=== PATIENT | female | born 1950 | race Caucasian/White ===

== ENCOUNTER → 2016-06-21 | Outpatient (CLI) | payer OTHER, MEDICARE | LOC: BMCIMAGING 12:06 | PROVIDERS: ATTEND Physician Assistant Medical | DX: R06.02 Shortness of breath (principal); M41.84 Other forms of scoliosis, thoracic region ==

== ENCOUNTER → 2018-02-23 | Outpatient (CLI) | payer OTHER, MEDICARE | LOC: FIMAGING 10:30 | PROVIDERS: ATTEND Orthopaedic Surgery | DX: M17.0 Bilateral primary osteoarthritis of knee (principal) ==

== ENCOUNTER 2018-03-12 05:48 | Observation (INO) | payer OTHER, MEDICARE ==
--- NOTE | 2018-02-28 14:17 | GHP ---
DATE OF ADMISSION: 03/12/2018 She will be an a.m. admission for surgery at the hospital on 03/12/2018. PROBLEM: Left knee arthritis. HISTORY OF PRESENT ILLNESS: The patient is a 67-year-old woman admitted for a left total knee arthro plasty. She is aware of bilateral knee degenerative arthritis for the past few years. She lives in [place], [place]. She is having daily pain. She has received cortisone injections in the past with temporary benefit. She is currently taking meloxicam which is mildly helpful. She was abimbola carrera scheduled for surgery in [facility]. She has pulmonary hypertension and is on chronic oxygen administration. The surgeon there did not want to do her surgery at an altitude of 9800 feet. She h as a son who lives in [place]. She can function here without supplemental oxygen. PAST MEDICAL HISTORY: Pulmonary hypertension and treatment for hypertension. No history of heart di sease, stents, DVT, hepatitis, MRSA staph infections, sleep apnea or bleeding problems. CURRENT MEDICATIONS: Lisinopril and meloxicam. DRUG ALLERGY: None. METAL ALLERGY: None. LATEX ALLERGY: None. SOCIAL HISTORY: The patient is . She does not smoke cigarettes and occasionally drinks alcoh ol. She is retired. She does not have any other total joint replacements. FAMILY HISTORY: Positive for heart disease and cancer. PHYSICAL EXAMINATION: VITAL SIGNS: Height 5 feet 2 inches. Weight 160 pounds. BMI 29.3. EYES: C onjunctivae and sclerae are clear. Pupils are round and reactive. MOUTH: Good oral hygiene. No lo ose teeth. CHEST: Clear. HEART: Regular rhythm. No murmurs. EXTREMITIES: Pertinent findings li mited to her left knee. Exam of her left knee shows full extension and 120 degrees of flexion. She has a small effusion. Her ligaments are stable. She is mildly tender along the medial joint line of her left knee. IMAGING: Her films show advanced medial compartment degenerative arthritis in both knees. Radiograp hically, her right knee is a little worse than the left. IMPRESSION ON ADMISSION: 1. Bilateral knee degenerative arthritis. She is prepared for a left total knee arthroplasty. 2. Treatment for hypertension. 3. Pulmonary hypertension. PLAN: She will undergo a left total knee arthroplasty. The surgery has been described to her, inclu ding the risks, complications, expectations, and recovery time. She has seen both her hot dimpling machine operator sher nd her office admin at [facility] in [place] and they have cleared her for surgery. Juan baltazar will be staying with her son in [place] for few weeks after surgery. I am going to use Gene roboti c assisted total knee system. The risks, complications and expectations and recovery time have been reviewed with her and with her . I have advised her that a small percentage of people do not get a good result with a total knee replacement. She is aware of medical complications such as pneum onia, stroke and heart attack. All her questions have been answered, and she consents to surgery. Copy requested to: Dr. Boston [place] /[id number]/MODL
[2018-03-12] MEDS ORDERED: TRANEXAMIC ACID 1,000 MG in NS 100 ML IV ONE (06:00)
[2018-03-12] MEDS ORDERED: ROPIVACAINE 0.2% 80 MG, EPINEPHrine 0.2 MG, KETOROLAC TROMETHAMINE 30 MG in SYRINGE 0 ML IU ONE (06:00)
[2018-03-12] MEDS ORDERED: POVIDONE-IODINE 20 ML in SODIUM CL IRRIG SOLUTION 500 ML IRR ONE (06:00)
[2018-03-12] MEDS ORDERED: TRANEXAMIC ACID 3,000 MG in NS (SYRINGE) 50 ML IRR ONE (06:00)
[2018-03-12] MEDS ORDERED: FAMOTIDINE 20 MG TAB PO ONE (06:04)
[2018-03-12] MEDS ORDERED: ceFAZolin 2 GM/DEXTROSE 100 ML IV ONE (06:04)
[2018-03-12] MEDS ORDERED: ONDANSETRON 4 MG/2 ML VIAL IVP ONE (06:04)
[2018-03-12] MEDS ORDERED: ACETAMINOPHEN 325 MG TAB PO ONE (06:04)
[2018-03-12] MEDS ORDERED: DEXAMETHASONE 4 MG/ML VIAL IVP ONE (06:04)
[2018-03-12] MEDS ORDERED: GABAPENTIN 300 MG CAP PO ONE (06:04)
[2018-03-12] MEDS ORDERED: LIDOCAINE 1% 2 ML INJ ID PRN (06:05)
[2018-03-12] MEDS ORDERED: LR 1,000 ML IV ONE (06:05)
[2018-03-12] MEDS ORDERED: ceFAZolin 1 GM/5 ML SYR ONE (06:35)
[2018-03-12] MEDS ORDERED: TRANEXAMIC ACID 3,000 MG/50 ML BAG IRR ONE (06:36)
--- NOTE | 2018-03-12 06:48 | PDANEPAE ---
ANE Past Medical History - Cardiovascular History Hx Hypertension: Yes Hx Arrhythmias: No Hx Chest Pain: No Hx Coronary Artery / Peripheral Vascular Disease: No Hx CHF / Valvular Disease: No Hx Palpitations: No - Pulmonary History Hx COPD: No Hx Asthma/Reactive Airway Disease: No Hx Recent Upper Respiratory Infection: No Hx Oxygen in Use at Home: Yes O2 in Use at Home (L/minute): O2 3L CONT 24 HRS Hx Sleep Apnea: No Sleep Apnea Screening Result - Last Documented: Negative Pulmonary History Comment: PULMONARY HTN - Neurologic History Hx Cerebrovascular Accident: No Hx Seizures: No Hx Dementia: No - Endocrine History Hx Diabetes: No Hypothyroid: No Hyperthyroid: No Obesity: no - Renal History Hx Renal Disorders: No - Liver History Hx Hepatic Disorders: No - Neurological & Psychiatric Hx Hx Neurological and Psychiatric Disorders: No - Cancer History Hx Cancer: No - Congenital Disorder History Hx Congenital Disorders: No - GI History GERD: no Hx Gastrointestinal Disorders: No - Chronic Pain History Chronic Pain: Yes (KNEES CESAR CURRENTLY EXPERIENCING SOME SHOULDER PAIN) - Surgical History Prior Surgeries: D&C 8 YRS AGO ANE Review of Systems Review of Systems: - Exercise capacity Exercise capacity: >=4 METS METS (RN): 4 METS ANE Patient History - Allergies Allergies/Adverse Reactions: No Known Allergies Allergy (Unverified 02/21/18 10:25) - Home Medications Home Medications: Cholecalciferol Vit D3 [Vitamin D3 (*)] 1,000 units PO DAILY 02/21/18 [Last Taken 03/05/18] Herbals/Supplements -Info Only 1 ea PO DAILY 02/21/18 [Last Taken Unknown] Hydrochlorothiazide [HCTZ (*)] 25 mg PO DAILY 02/21/18 [Last Taken 03/11/18] Lisinopril [Zestril 2.5 mg (*)] 2.5 mg PO BID 02/21/18 [Last Taken 03/11/18] Meloxicam 7.5 mg PO BID 02/21/18 [Last Taken 03/11/18] - NPO status NPO Since - Liquids (Date): 03/12/18 NPO Since - Liquids (Time): 02:30 NPO Since - Solids (Date): 03/11/18 NPO Since - Solids (Time): 19:00 - Anes Hx Anes Hx: no prior problems - Smoking Hx Smoking Status: Never smoked Marijuana use: No - Alcohol Use Alcohol Use: Occasionally - Family Anes Hx Family Anes Hx: neg - N/A Family Hx Anesthesia Complications: NEG ANE Labs/Vital Signs - Vital Signs Height: 158.75 cm Weight: 72.575 kg ANE Physical Exam - Airway Neck exam: FROM Mallampati Score: Class 3 Mouth exam: normal dental/mouth exam - Pulmonary Pulmonary: no respiratory distress, no rales or rhonchi, clear to auscultation - Cardiovascular Cardiovascular: regular rate and rhythym, no murmur, rub, or gallop - ASA Status ASA Status: II ANE Anesthesia Plan Anesthesia Plan: MAC, spinal Regional Anesthesia: continuous NB, adductor canal FNB Total IV Anesthesia: No
[2018-03-12] MEDS ORDERED: MIDAZOLAM 2 MG/2 ML VIAL ONE (07:02)
--- NOTE | 2018-03-12 07:02 | PDHPUP ---
History & Physical Update H&P update statement: This history and physical update is based on an assessment of the patient which was completed after admission or registration (within 24 hours), but prior to the surgery/procedure. H&P update: H&P reviewed & patient examined
[2018-03-12] MEDS ORDERED: fentaNYL 100 MCG/2 ML INJ ONE (07:12)
[2018-03-12] MEDS ORDERED: PROPOFOL/EMULSION 500 MG/50 ML BOTTLE IV ONE (07:13)
[2018-03-12] MEDS ORDERED: BUPIVACAINE/DEXTROSE 7.5MG/ML 2 ML SPINAL AMP SP ONE (07:13)
[2018-03-12] MEDS ORDERED: LR 500 ML IV PRN (08:01)
[2018-03-12] MEDS ORDERED: PHENYLEPHRINE HCL 100 MCG/ML SYR IVP PRN (08:01)
[2018-03-12] MEDS ORDERED: ONDANSETRON 4 MG/2 ML VIAL IVP PRN ×2 (08:01→09:41)
[2018-03-12] MEDS ORDERED: NALOXONE HCL 0.4 MG/ML INJ IVP PRN (08:01)
[2018-03-12] MEDS ORDERED: MIDAZOLAM 2 MG/2 ML VIAL IVP ONE (08:01)
[2018-03-12] MEDS ORDERED: PROMETHAZINE HCL 25 MG/ML INJ IVP PRN ×2 (08:01→09:41)
--- NOTE | 2018-03-12 09:36 | POSTOPPROG ---
Post Op Note Date of Operation: 03/12/18 Surgeon: Artie Jay Pathology Assistant: David/Kenzie Anesthesiologist: Dr. Ancelmo Robledo Post-op Diagnosis: Left knee severe degenerative arthritis. Procedure: Left total knee arthroplasty, Gene robot assisted, uncemented. Inf/Abcess present in the surg proc area at time of surgery?: No EBL: 50-100 (Adductor canal block in PACU with indwelling catheter.)
[2018-03-12] MEDS ORDERED: ROPIVACAINE HCL 150 MG/30 ML INJ ONE (09:39)
[2018-03-12] MEDS ORDERED: METOCLOPRAMIDE 10 MG/2 ML VIAL IVP PRN (09:41)
[2018-03-12] MEDS ORDERED: oxyCODONE IR 5 MG TAB PO PRN (09:41)
[2018-03-12] MEDS ORDERED: POLYETHYLENE GLYCOL 3350 17 GM PKT PO PRN (09:41)
[2018-03-12] MEDS ORDERED: traMADol 50 MG TAB PO PRN (09:41)
[2018-03-12] MEDS ORDERED: DIPHENOXYLATE/ATROPINE LOMOTIL 1 TAB PO PRN (09:41)
[2018-03-12] MEDS ORDERED: PROMETHAZINE HCL 25 MG SUPPR PR PRN (09:41)
[2018-03-12] MEDS ORDERED: BISACODYL 10 MG SUPP PR PRN (09:41)
[2018-03-12] MEDS ORDERED: ONDANSETRON DISINTEGRATING 4 MG TAB PO PRN (09:41)
[2018-03-12] MEDS ORDERED: TEMAZEPAM 15 MG CAP PO PRN (09:41)
[2018-03-12] MEDS ORDERED: MAGNESIUM HYDROXIDE 30 ML UDCUP PO PRN (09:41)
[2018-03-12] MEDS ORDERED: CYCLOBENZAPRINE 10 MG TAB PO PRN (09:41)
[2018-03-12] MEDS ORDERED: NS 500 ML IV PRN (09:41)
[2018-03-12] MEDS ORDERED: diphenhydrAMINE 25 MG CAP PO PRN (09:41)
[2018-03-12] MEDS ORDERED: LACTULOSE 20 GM/30 ML UDCUP PO PRN (09:41)
[2018-03-12] MEDS ORDERED: LR 1,000 ML IV SCH (10:00)
--- NOTE | 2018-03-12 11:01 | POSTANESTH ---
Post Anesthetic Evaluation Cardiovascular Status: Normal, Stable Respiratory Status: Normal, Stable Level of Consciousness/Mental Status: Can Participate in Eval Pain Control: Adequate, Prn Tx Ordered Nausea/Vomiting Control: Adequate, Prn Tx Ordered Complications Possibly Related to Anesthesia: None Noted
--- NOTE | 2018-03-12 11:16 | GOP ---
DATE OF OPERATION: 03/12/2018 SURGEON: Artie Jay MD EMD TEACHER: Shree Hernandez and Nemesio Espino. ANESTHESIA: Combination of Marcaine, spinal, IV sedation, and adductor canal block. ANESTHESIOLOGIST: Daniel Robledo DO. PREOPERATIVE DIAGNOSIS: Left knee severe degenerative arthritis with varus deformity. POSTOPERATIVE DIAGNOSIS: Left knee severe degenerative arthritis with varus deformity. PROCEDURE PERFORMED: March 12, 2018, left total knee arthroplasty, Gene robot assisted, cementles s. FINDINGS: DESCRIPTION OF PROCEDURE: The patient was given 2 g of preoperative Ancef within 60 minutes of surge ry. She also received 1000 mg of IV tranexamic acid. She was placed on the operating room table and given spinal anesthesia with Marcaine by Dr. Robledo. She was then placed supine and given IV s edation. She wore a stocking and SCD on the nonoperative leg. Her left lower extremity was prepped with ChloraPrep from the upper thigh tourniquet to the tips of the toes. It was draped free using st erile sheets, stockinette, and Ioban plastic adhesive drapes. The lower leg was wrapped with ezequiel sive Coban. The World Health Organization time-out was performed to verify the correct patient identity and the c orrect surgical side and site. The [place] time-out was also performed. The TekTra[employer] leg holding george ce was sterilely attached to the operating room table and used throughout the procedure to help posit ion the knee. Two, 3 mm partially threaded pins were inserted in a bicortical fashion in the anteromedial cortex of the tibia about 4-5 inches distal to the tibial tubercle. The leg was exsanguinated with a 6-inch c ompressive wrap, and the pneumatic tourniquet was inflated to 250 mmHg. A straight midline incision made centered on the patella. Subcutaneous tissues were sharply divided, and hemostasis was obtained using electrocautery. A medial subcutaneous flap was developed and the capsule and synovium were op ened in a medial parapatellar fashion. Extensive degenerative changes were present in the medial compartment and in the patellofemoral joint . Her medial capsule was lightly elevated off the rim of the medial tibial plateau all the way aroun d to the posteromedial corner. Two, 3 mm partially threaded pins were inserted in a bicortical fashion in the medial aspect of the d istal femur in the supracondylar region. The femoral check point was inserted just anterior and slig htly distal to the 2 pins. The tibial check point was inserted in the anteromedial cortex of the pro ximal tibia about an inch below the joint line. The arrays were attached to the femur and tibia. I confirmed that the arrays were visualized by the computer. The patella was prepared first. The original thickness of the patella was measured. Peripheral oste ophytes removed. I cut a flat surface on the back of the patella. She was sized for a 29 mm asymmet maximo patellar component with the 10 mm thickness. I removed enough bone from the patella such that th e remaining bone plus the thickness of the patellar component recreated the original thickness of the patella. The composite thickness was 23 mm. The bony anatomy of the knee was registered starting with the center rotation of the femur, followed by the medial and lateral malleoli. The femoral and tibial anatomy were registered and checked. I removed osteophytes from the rim of the medial and lateral femoral condyles. I then performed the dynamic joint balancing. As expected, she was tight medially. The preoperative plan called for a si ze 3 femur and a size 3 tibia. I had to make some adjustments in the position of the femoral and tib ial components in order to achieve symmetrical gap balances of 18 mm in extension and flexion. I add ed a couple of degrees of varus to the femur, 2 degrees of external rotation to the femur, 2 degrees of varus to the tibia and I shifted the femoral component anteriorly 1 mm. The robotic control saw was brought into place and the blade was registered. The distal femoral cut was made followed by the posterior chamfer cut, the anterior chamfer cut and the anterior chamfer. T he robotic arm was then used to make the proximal tibial cut. The posterior compartment was cleared of meniscal remnants. Osteophytes were removed from the back of the femoral condyles. 40 mL of the joint anesthetic cocktail were injected into the posterior capsule, the periarticular structures, and the subcutaneous tissues along the skin edges. I used the appropriate jig to create the notching the femur with the power oscillating saw and osteot ome in order to accommodate the posterior stabilized femoral component. The size 3 femoral component was applied and tapped securely into place. The tibia was sized for a size 3 component. I did a trial reduction with all 3 components including a 9 mm tibial insert. The knee came to full extension and flexed to 135 degrees. The collateral lig aments were stable in 5 degrees of flexion and 90 degrees of flexion. The gaps medial and laterally were reading 18 mm in extension and 90 degrees of flexion. I thin-punched the tibial component. The bone quality was excellent and the cuts were accurate. I f elt she was very suitable for press-fit components. The [employer] triathlon tibial base plate was appl ied and tapped securely into place. It was a tight fit. The size 3 femoral component was applied an d tapped securely into place and was also very tight. The 29 mm asymmetric patella was applied, clam ped and tightened. Tibial tracking was checked. It was excellent without any digital pressure. The knee was taken thro [facility] a range of motion from full extension to 130 degrees of flexion. Her collateral ligaments were s table and balanced in full extension and 90 degrees of flexion. The tourniquet was deflated, the total tourniquet time was 1 hour and 14 minutes. The knee was thoro ughly irrigated with a dilute Betadine solution. 50 cc of tranexamic acid solution were irrigated in to the joint. The knee was packed with a lap and wrapped with a 6-inch Corey bandage and left in place for 3 or 4 minutes. The vastus medialis portion of the extensor mechanism was repaired with several interrupted figure-of -eight #2 FiberWire sutures. Prior to closure the threaded pins in the tibia and femur were removed. The tibial and femoral check points were removed. The capsule and synovium were closed first with multiple interrupted rtdion-ed-[id number] 0 PDS sutures, followed by a running #2 barbed Ethicon Stratafix PDO suture. Subcutaneous tissues were closed with a running 0 barbed Ethicon Stratafix Monoderm sut ure. The skin was closed with a running 3-0 barbed Ethicon Stratafix Monoderm subcuticular suture. The skin was sealed with half-inch Steri-Strips. The wound was covered with a large Mepilex waterpro of dressing. The knee was wrapped with a 6-inch compressive wrap. A long-leg KWASI stocking and SCD w ere applied, followed by the cooling device. The Mepilex sacral dressing was applied. I used a Mohini size 3 triathlon posterior stabilized press-fit femoral component, size 3 cemented p ress-fit tibial base plate, a 9 mm posterior stabilized tibial insert and a 29 mm press-fit asymmetri donita metal back patellar component. The sponge and needle count were correct on 2 occasions. She was awakened from anesthesia, transferred to her hospital [facility] and taken to PACU in satisfactor y condition. There were no recognized intraoperative complications. In the PACU, for additional postoperative pain control, Dr. Robledo performed an adductor canal b lock with an indwelling catheter. Shree Hernandez and Nemesio Espino acted as surgical assistants. Their assistance was a medical necess ity for safe completion of the procedure. Copy requested to: Kaci Bell MD [facility] /[id number]/MODL
[2018-03-12] MEDS: ACETAMINOPHEN 325 MG TAB PO SCH ×3 (13:15→22:54)
[2018-03-12] MEDS: KETOROLAC 15 MG/1 ML SDV IVP SCH ×3 (13:15→22:56)
[2018-03-12] MEDS: ceFAZolin 2 GM/DEXTROSE 100 ML IV SCH ×2 (15:20→22:55)
[2018-03-12] MEDS: LISINOPRIL 2.5 MG TAB PO SCH (22:55)
[2018-03-12] MEDS: FAMOTIDINE 20 MG TAB PO SCH (22:55)
[2018-03-12] MEDS: ASPIRIN 325 MG TAB PO SCH (23:12)
[2018-03-13] MEDS: SENNOSIDES/DOCUSATE SODIUM TAB PO SCH ×2 (00:31→07:38)
[2018-03-13] MEDS: KETOROLAC 15 MG/1 ML SDV IVP SCH (06:49)
[2018-03-13] MEDS: ACETAMINOPHEN 325 MG TAB PO SCH (06:49)
[2018-03-13] MEDS ORDERED: ROPIVACAINE HCL 150 MG/30 ML INJ ONE (08:17)
[2018-03-13] MEDS: ASPIRIN 325 MG TAB PO SCH (08:19)
[2018-03-13] MEDS: FAMOTIDINE 20 MG TAB PO SCH (08:19)
[2018-03-13] MEDS: LISINOPRIL 2.5 MG TAB PO SCH (08:19)
[2018-03-13] MEDS ORDERED: LIPID EMULSION 20% 100 ML IV PRN (08:26)
[2018-03-13] MEDS ORDERED: HYDROCHLOROTHIAZIDE 25 MG TAB PO SCH (09:00)
[2018-03-13] MEDS ORDERED: CHOLECALCIFEROL VIT D3 1,000 UNITS TAB PO SCH (09:00)
[2018-03-13] MEDS ORDERED: FERROUS SULFATE 140 MG TAB.ER PO SCH (09:00)
--- NOTE | 2018-03-13 09:09 | PDPAINCON ---
Pain Management Consultation Patient referred by : Misty - Subjective Pain at rest (/10): 2 Pain with activity (/10): 8 Pain is: low, well controlled Activity: participating in PT - Objective Technique: continuous peripheral nerve block Site: femoral (AC catheter) Continuous infusion: ropivicaine Bolus (ml): 20 Catheter site: clean, dry, intact Sensory and motor exam: consistent with block Vital signs: stable - Assessment/Plan Assessment/Plan: other Additional comments: AC catheter tested and injected with Ropivacaine 0.5%, 20 ml, with patient monitored as per protocol. Catheter removed easily and tip intact.
[2018-03-13 09:20] VITALS: BP 100/72
--- NOTE | 2018-03-13 09:32 | SOAPPROG ---
SOAP Progress Note Assessment/Plan: Assessment: Afebrile. Awake and alert. Mild pain so far. Up and walking and has done stairs. H/H is good. Films look good. Dsg is dry. Plan: DC today. 03/13/18 09:31 Objective: Vital Signs Temp Pulse Resp BP Pulse Ox 36.6 C 72 12 100/72 93 03/13/18 07:55 03/13/18 09:19 03/13/18 09:19 03/13/18 09:19 03/13/18 09:19 Laboratory Results 03/13/18 04:42 03/12/18 03/13/18 03/14/18 05:59 05:59 05:59 Intake Total 3820 Output Total 2750 900 Balance 1070 -900 ICD10 Worksheet Patient Problems: Problems Problem Status Onset Osteoarthritis of left knee Acute
--- NOTE | 2018-03-13 10:09 | GDS ---
ADMISSION DIAGNOSIS: Left knee severe degenerative arthritis. DISCHARGE DIAGNOSIS: Left knee severe degenerative arthritis. OPERATION PERFORMED: A left total knee arthroplasty, YAHAIRA robot assisted. POSTOPERATIVE COMPLICATIONS: None. CONDITION ON DISCHARGE: Improved. DESCRIPTION OF HOSPITAL COURSE: The patient was admitted to the hospital the morning of surgery. He r admission CBC, electrolytes, BUN, and creatinine were normal. The same day, under a combination of Marcaine spinal, IV sedation, and adductor canal block, she underwent a left YAHAIRA assisted total kne e arthroplasty. Postoperatively, she was treated with multimodal DVT prophylaxis, including aspirin. On the first po stoperative day, her hemoglobin and hematocrit were 11.6 and 34.3. She was seen by Physical Therapy and made rapid progress with ambulation, stairs, and knee range of motion. By the time of discharge, she was afebrile and her wound was dry. DISPOSITION: Patient discharged to her son's home here in [place]. She will have outpatient physica l therapy starting next week. She may progress to full weightbearing on the left as tolerated. Cont inue aspirin 325 mg p.o. daily for 21 days. She has prescriptions for oxycodone, tramadol, and Celeb sunitha for pain control. I will see her back in the office on March 28, 2018. If there are any prob lems, she is to call me at the office. Copy requested to: Dr. Kaci Weiss /[id number]/MODL
--- NOTE | 2018-03-13 10:59 | ASMTLACE ---
VAISHALIE Length of stay for Answers: 1 day current admission Acuity / Level of Answers: No Care: Did the patient have an inpatient admission? Comorbidities - select Answers: Opioid dependence all that apply / Chronic pain Other Notes: HTN # of Emergency department Answers: 0 visits in the last 6 months Score: 6 Date Signed: 03/13/2018 10:58 AM Electronically Signed By:Kelly Dwyer RN
--- NOTE | 2018-03-13 10:59 | ASMTCMCOM ---
CM Note CM Note Notes: Patient has been cleared by PT and is safe to discharge home to son's home. Will follow-up with outpatient therapy. No CM needs identified at this time. CM available should something change. Plan: Independent - outpatient therapy. Date Signed: 03/13/2018 10:58 AM Electronically Signed By:Kelly Dwyer RN
== END 2018-03-13 11:54 | disposition home or self-care (01) ==
LOC: F3E 05:48 → F3N 10:46
PROVIDERS: ADMIT Orthopaedic Surgery; ATTEND Orthopaedic Surgery
DX: M17.0 Bilateral primary osteoarthritis of knee (principal); I27.20 Pulmonary hypertension, unspecified; I10 Essential (primary) hypertension; G47.33 Obstructive sleep apnea (adult) (pediatric); Z99.81 Dependence on supplemental oxygen; Z86.718 Personal history of other venous thrombosis and embolism; Z86.14 Personal history of Methicillin resistant Staphylococcus aureus infection
CPT/HCPCS: 27447; 73560; 77073; 88311; 97116; 97161; 97165; 97530; C1776; G8978; G8979; G8980; G8987; G8988; G8989; J0171; J0690; J1100; J1885; J2250; J2405; J2704; J2795; J3010

== ENCOUNTER → 2018-09-02 | Outpatient (CLI) | payer OTHER, MEDICARE | LOC: FIMAGING 14:42 | PROVIDERS: ATTEND Orthopaedic Surgery | DX: Z01.818 Encounter for other preprocedural examination (principal); M17.11 Unilateral primary osteoarthritis, right knee ==

== ENCOUNTER → 2018-09-10 | Outpatient (CLI) | payer OTHER, MEDICARE | LOC: FIMAGING 19:20 | PROVIDERS: ATTEND Orthopaedic Surgery | DX: M17.11 Unilateral primary osteoarthritis, right knee (principal) ==

== ENCOUNTER 2018-09-11 11:03 | Inpatient (IN) | payer OTHER, MEDICARE ==
--- NOTE | 2018-09-11 06:07 | PDHPUP ---
History & Physical Update H&P update statement: This history and physical update is based on an assessment of the patient which was completed after admission or registration (within 24 hours), but prior to the surgery/procedure. H&P update: H&P reviewed & patient examined, no change in patient's condition since H&P completed
[~2018-09-11 11:03] MED LIST: ROPIVACAINE 0.2% 80 MG, EPINEPHrine 0.2 MG, KETOROLAC TROMETHAMINE 30 MG in SYRINGE 0 ML IU ONE; TRANEXAMIC ACID 3,000 MG in NS (SYRINGE) 50 ML IRR ONE; TRANEXAMIC ACID 3,000 MG/50 ML BAG IRR ONE
[2018-09-11] MEDS ORDERED: ACETAMINOPHEN 325 MG TAB PO ONE (11:21)
[2018-09-11] MEDS ORDERED: ceFAZolin 2 GM/DEXTROSE 100 ML IV ONE (11:21)
[2018-09-11] MEDS ORDERED: FAMOTIDINE 20 MG TAB PO ONE (11:21)
[2018-09-11] MEDS ORDERED: DEXAMETHASONE 4 MG/ML VIAL IVP ONE (11:21)
[2018-09-11] MEDS ORDERED: LR 1,000 ML IV ONE (11:23)
--- NOTE | 2018-09-11 12:04 | PDANEPAE ---
ANE History of Present Illness TKA, right. ANE Past Medical History - Cardiovascular History Hx Hypertension: Yes Hx Arrhythmias: No Hx Chest Pain: No Hx Coronary Artery / Peripheral Vascular Disease: No Hx CHF / Valvular Disease: No Hx Palpitations: No Cardiovascular History Comment: PHTN - Pulmonary History Hx COPD: No Hx Asthma/Reactive Airway Disease: No Hx Recent Upper Respiratory Infection: No Hx Oxygen in Use at Home: Yes Hx Sleep Apnea: No Sleep Apnea Screening Result - Last Documented: Positive Pulmonary History Comment: PULMONARY HTN - Neurologic History Hx Cerebrovascular Accident: No Hx Seizures: No Hx Dementia: No - Endocrine History Hx Diabetes: No Hypothyroid: No Hyperthyroid: No Obesity: mild - Renal History Hx Renal Disorders: No - Liver History Hx Hepatic Disorders: No - Neurological & Psychiatric Hx Hx Neurological and Psychiatric Disorders: No - Cancer History Hx Cancer: No - Congenital Disorder History Hx Congenital Disorders: No - GI History GERD: no Hx Gastrointestinal Disorders: No - Other Health History Other Health History: Used CBD oil - Chronic Pain History Chronic Pain: Yes (KNEES CESAR CURRENTLY EXPERIENCING SOME SHOULDER PAIN) - Surgical History Prior Surgeries: D&C 8 YRS AGO. s/p left TKA under SAB+ACNB ANE Review of Systems Review of Systems: - Exercise capacity METS (RN): 4 METS ANE Patient History - Allergies Allergies/Adverse Reactions: No Known Allergies Allergy (Verified 08/30/18 10:43) - Home Medications Home Medications: Losartan Potassium [Cozaar 25 mg (*)] 12.5 mg PO DAILY 08/30/18 [Last Taken Unknown] - Anes Hx Anes Hx: no prior problems - Smoking Hx Smoking Status: Never smoked Marijuana use: No - Alcohol Use Alcohol Use: Other (1 drink/day.) - Family Anes Hx Family Anes Hx: none Family Hx Anesthesia Complications: NEG ANE Labs/Vital Signs - Vital Signs Blood Pressure: 110/87 Heart Rate: 64 Respiratory Rate: 15 O2 Sat (%): 92 Height: 158.75 cm Weight: 71.668 kg ANE Physical Exam - Airway Neck exam: decreased ROM Mallampati Score: Class 2 Mouth exam: normal dental/mouth exam - Pulmonary Pulmonary: clear to auscultation - Cardiovascular Cardiovascular: regular rate and rhythym - ASA Status ASA Status: II ANE Anesthesia Plan Anesthesia Plan: spinal Regional Anesthesia: adductor canal FNB
[2018-09-11] MEDS ORDERED: BUPIVACAINE 0.5% 30 ML SDV ONE ×2 (12:10→13:12)
[2018-09-11] MEDS ORDERED: MIDAZOLAM 2 MG/2 ML VIAL IVP ONE (13:02)
[2018-09-11] MEDS ORDERED: PROPOFOL 200 MG/20 ML VIAL ONE ×3 (13:13→14:12)
[2018-09-11] MEDS ORDERED: fentaNYL 100 MCG/2 ML INJ ONE (13:13)
[2018-09-11] MEDS ORDERED: fentaNYL 100 MCG/2 ML INJ IVP PRN (14:23)
[2018-09-11] MEDS ORDERED: NALOXONE HCL 0.4 MG/ML INJ IVP PRN (14:23)
[2018-09-11] MEDS ORDERED: HYDROmorphONE/DILAUDID 1 MG/ML INJ IVP PRN (14:23)
[2018-09-11] MEDS ORDERED: ROPIVACAINE HCL 150 MG/30 ML INJ ONE (14:24)
[2018-09-11] MEDS ORDERED: PHENYLEPHRINE HCL 100 MCG/ML SYR ONE (14:36)
[2018-09-11] MEDS ORDERED: MAGNESIUM HYDROXIDE 30 ML UDCUP PO PRN (14:54)
[2018-09-11] MEDS ORDERED: METOCLOPRAMIDE 10 MG/2 ML VIAL IVP PRN (14:54)
[2018-09-11] MEDS ORDERED: diphenhydrAMINE 25 MG CAP PO PRN (14:54)
[2018-09-11] MEDS ORDERED: PROMETHAZINE HCL 25 MG SUPPR PR PRN (14:54)
[2018-09-11] MEDS ORDERED: PROMETHAZINE HCL 25 MG/ML INJ IVP PRN (14:54)
[2018-09-11] MEDS ORDERED: CYCLOBENZAPRINE 10 MG TAB PO PRN (14:54)
[2018-09-11] MEDS ORDERED: DIPHENOXYLATE/ATROPINE LOMOTIL 1 TAB PO PRN (14:54)
[2018-09-11] MEDS ORDERED: BISACODYL 10 MG SUPP PR PRN (14:54)
[2018-09-11] MEDS ORDERED: LACTULOSE 20 GM/30 ML UDCUP PO PRN (14:54)
[2018-09-11] MEDS ORDERED: POLYETHYLENE GLYCOL 3350 17 GM PKT PO PRN (14:54)
[2018-09-11] MEDS ORDERED: ONDANSETRON DISINTEGRATING 4 MG TAB PO PRN (14:54)
[2018-09-11] MEDS ORDERED: TEMAZEPAM 15 MG CAP PO PRN (14:54)
[2018-09-11] MEDS ORDERED: ONDANSETRON 4 MG/2 ML VIAL IVP PRN (14:54)
--- NOTE | 2018-09-11 14:54 | POSTOPPROG ---
Post Op Note Date of Operation: 09/11/18 Surgeon: Kennedy Benites Heel Cementer: Raeann Parkinson PAC Anesthesiologist: Dr. Petros Benítez Anesthesia: Spinal, Other (Specify) (adductor canal block) Pre-op Diagnosis: right knee OA Post-op Diagnosis: same Indication: right knee pain Procedure: RTKA, robot assisted Findings: severe OA of right knee Inf/Abcess present in the surg proc area at time of surgery?: No EBL: 50-100
[2018-09-11] MEDS ORDERED: LR 1,000 ML IV SCH (15:00)
--- NOTE | 2018-09-11 15:08 | PDMN ---
Medical Necessity Medical necessity: Pt meets IP criteria per PA; est los >2 mn s/p R TKA (cpt 06510); recommend IP due to advanced age, hx of pulmonary htn, requiring O2 at altitude & pain control; per order 09/11/18
--- NOTE | 2018-09-11 16:02 | POSTANESTH ---
Post Anesthetic Evaluation Cardiovascular Status: Similar to Pre-Op Cond Respiratory Status: Similar to Pre-op Cond. Level of Consciousness/Mental Status: Can Participate in Eval Pain Control: Adequate, Prn Tx Ordered Nausea/Vomiting Control: Adequate, Prn Tx Ordered Complications Possibly Related to Anesthesia: None Noted
[2018-09-11] MEDS: ACETAMINOPHEN 325 MG TAB PO SCH (20:58)
[2018-09-11] MEDS: FAMOTIDINE 20 MG TAB PO SCH (20:58)
[2018-09-11] MEDS: oxyCODONE IR 5 MG TAB PO PRN ×2 (20:59→21:45)
[2018-09-11] MEDS: SENNOSIDES/DOCUSATE SODIUM TAB PO SCH (20:59)
[2018-09-11] MEDS: ASPIRIN 81 MG CHEWABLE TAB PO SCH (20:59)
[2018-09-11] MEDS: ceFAZolin 2 GM/DEXTROSE 100 ML IV SCH (21:46)
[2018-09-12] MEDS: ACETAMINOPHEN 325 MG TAB PO SCH ×2 (03:13→09:22)
[2018-09-12] MEDS: oxyCODONE IR 5 MG TAB PO PRN (03:46)
[2018-09-12] MEDS: ceFAZolin 2 GM/DEXTROSE 100 ML IV SCH (06:05)
[2018-09-12 07:42] VITALS: BP 143/82
--- NOTE | 2018-09-12 08:14 | SOAPPROG ---
SOAP Progress Note Assessment/Plan: Assessment: 68 year old female s/p right TKA, Gene assist - POD 1 Doing well Anemia - expected initially post-op, asymptomatic, continue to monitor Plan: Continue d/c planning -doing better than expected; going to her son's home today ; she lives in [place] and will be staying with her son in [place] Continue PT efforts - WBAT, ROM but limit knee flexion to 90 degrees until POD 5 -7. She needs to be cleared by PT prior to d/c Continue VTE ppx- aspirin, SCDs, KWASI hose Continue oral pain medication - oxycodone, tylenol, celebrex; she would like scripts for zofran and flexeril - Dr. Benites's office will electronically send these to her pharmacy Subjective: Patient states she is doing well, pain is controlled. She would like scripts for Zofran and Flexeril sent to her pharmacy. She will be staying with her son in [place], patient lives in [place]. She feels well enough to go home today. She denies SOB, CP, fever, chills. Objective: Vital Signs Temp Pulse Resp BP Pulse Ox 36.7 C 61 14 143/82 H 96 09/12/18 07:35 09/12/18 07:35 09/12/18 07:35 09/12/18 07:35 09/12/18 07:35 Laboratory Results 09/12/18 04:27 09/11/18 09/12/18 09/13/18 05:59 05:59 05:59 Intake Total 1805 Output Total 3100 650 Balance -1295 -650 Patient resting in bed, no acute distress. RLE: Wound dressings on the knee are clean, dry and intact. Lower leg compartments are soft and nontender. She can actively DF and PF her right foot and great toe against resistance. Grossly NVI distally. ICD10 Worksheet Patient Problems: Problems Problem Status Onset Unilateral primary osteoarthritis, right knee Acute Osteoarthritis of left knee Acute
--- NOTE | 2018-09-12 08:24 | PDDCSUM ---
Discharge Summary Discharge Summary: ADMISSION DIAGNOSIS: Right knee severe degenerative arthritis DISCHARGE DIAGNOSIS: Right knee severe degenerative arthritis OPERATION PERFORMED: September 11, 2018, Right total knee arthroplasty, Gene robot assisted. POSTOPERATIVE COMPLICATIONS: None CONDITION ON DISCHARGE: Improved HPI: The patient is a 68 year old female who has end-stage arthritis of her right knee. Clinical and radiographic features are consistent with this. Patient has failed attempts at conservative management, therefore, recommended operative right total knee replacement. DESCRIPTION OF HOSPITAL COURSE: The patient was admitted to the hospital on the morning of surgery and underwent a right total knee arthroplasty, Gene robot assisted. Postoperatively, patient was treated with multimodal DVT prophylaxis, including aspirin 81 mg BID, SCDs and KWASI hose. Patient was seen by PT and made good progress with ambulation and stairs. On the first post-operative day the patients H&H was 11.8/35.1. Patient was able to void spontaneously. At the time of discharge, patient was afebrile, wound was clean and dry. Patient is walking with a walker. DISPOSITION: The patient is discharged to her son's home in [place] (she lives in [place]) and will have outpatient PT in the next 1-2 weeks. Patient may progress to full weightbearing on the right lower extremity as tolerated. KWASI stockings for 2 weeks during the day time. Aspirin 81 mg BID for 4 weeks. Patient has prescriptions for Celebrex, oxycodone for pain control. She would also like to get scripts for Zofran and Flexeril, these were electronically sent to her pharmacy by Dr. Benites's office. The patient will be seen by Dr. Mckee office in approximately 3 weeks. If there are any problems, patient is to call Dr. Mckee office.
[2018-09-12] MEDS ORDERED: LOSARTAN POTASSIUM 25 MG TAB PO SCH (09:00)
[2018-09-12] MEDS: SENNOSIDES/DOCUSATE SODIUM TAB PO SCH (09:23)
[2018-09-12] MEDS: FAMOTIDINE 20 MG TAB PO SCH (09:23)
[2018-09-12] MEDS: ASPIRIN 81 MG CHEWABLE TAB PO SCH (09:23)
--- NOTE | 2018-09-12 09:41 | GOP ---
[f rep st] OPERATIVE REPORT DATE OF OPERATION: 09/11/2018 SURGEON: Ariela Benites MD MANAGER OF ENVIRONMENTAL SERVICES: Jordyn Parkinson PA-C. ANESTHESIA: Spinal. PREOPERATIVE DIAGNOSIS: Right knee osteoarthritis. POSTOPERATIVE DIAGNOSIS: Right knee osteoarthritis. PROCEDURE PERFORMED: Right total knee arthroplasty with computer navigation, robotic assist. FINDINGS: Severe medial and patellofemoral osteoarthritis. ESTIMATED BLOOD LOSS: 130 cc. INDICATIONS: The patient is a 68-year-old female with severe and progressive pain and deformity of t he right knee unresponsive to conservative care. The risks and benefits of surgical intervention wer e explained in detail. DESCRIPTION OF PROCEDURE: The patient was brought to the operative room and placed on the table in t he supine position. Spinal anesthesia was induced without difficulty. A pneumatic tourniquet was appl ied about the right proximal thigh, and the leg was prepped and draped in a sterile fashion. The leg abarca was applied. After exsanguination by elevation the tourniquet was inflated to 250 mmHg. Incision was made anterior medial from the tibial tuberosity to a point 2 cm proximal to the superior pole of the patella. Medial parapatellar arthrotomy was carried out from the superior pole of the pa tella and posteriorly in line with the fibers of the Type II VMO. The medial collateral ligament was elevated and the infrapatellar fat pad was resected. The patella was everted and the articular surface was excised. A 35 mm patellar button was placed. Attention was turned first to the distal aspect of the femur. After exposure of the femur, 2 half pi ns were placed for fixation of the femoral array. In a similar fashion, 2 pins were placed anteromed ial on the tibia for fixation of the tibial array. External land marking and registration of the hip center was performed without difficulty. Internal femoral and tibial registration was carried out w ithout difficulty and the femoral and tibial checkpoints were placed and verified for accuracy. Attention was turned to the femur. The foot print for the size 3 femoral component was cut with the saw using the [employer] robotic system and verified for accuracy against the CT based plan. In a similar f ashion, the saw was used to cut the footprint for the size 4 tibial component using the [employer] system an d verified for accuracy against the CT based plan. The tibial articular surface was excised without d ifficulty, followed by the intercondylar box cut. The knee was extended and the remnants of the medial and lateral meniscus were excised. The posterior capsule was injected with ropivacaine, epinephrine and Toradol. A size 4 tibial tray was positioned . Trial reduction was then carried out. There was excellent range of motion, alignment, and stability using the 4 x 9 mm polyethylene. All trials were then removed. The joint was thoroughly irrigated and carefully dried. The Press-Fit c omponents were implanted. The permanent 4 x 9 mm polyethylene was placed without difficulty. The tourniquet was deflated and all bleeders were coagulated. The wound was thoroughly irrigated and closed using interrupted sutures of 2-0 Vicryl for the joint capsule. The subcu was closed with 3-0 V icryl and the skin with 4-0 Monocryl. Dermabond and Steri-Strips were applied followed by a compress jurgen dressing. The patient was then moved from the operating room to the recovery room in good conditi on, having tolerated the procedure well. /[id number]/MODL
--- NOTE | 2018-09-12 10:06 | ASMTLACE ---
LACE Length of stay for Answers: 1 day current admission Acuity / Level of Answers: Yes Care: Did the patient have an inpatient admission? Comorbidities - select Answers: Other Notes: HTN all that apply # of Emergency department Answers: 0 visits in the last 6 months Score: 5 Date Signed: 09/12/2018 10:05 AM Electronically Signed By:PHYLLIS Go
== END 2018-09-12 11:02 | disposition home or self-care (01) | DRG 470 ==
LOC: F3N 11:03
PROVIDERS: ADMIT Orthopaedic Surgery; ATTEND Orthopaedic Surgery
PROC: 0SRC0JZ Replacement of Right Knee Joint with Synthetic Substitute, Open Approach (ICD-10-PCS; principal; 2018-09-11 13:00)
PROC: 8E0Y0CZ Robotic Assisted Procedure of Lower Extremity, Open Approach (ICD-10-PCS; principal; 2018-09-11 13:00)
DX: M17.11 Unilateral primary osteoarthritis, right knee (principal); I10 Essential (primary) hypertension; D64.9 Anemia, unspecified; Z96.652 Presence of left artificial knee joint
CPT/HCPCS: 97161-GP; J0171; J0690; J1100; J1885; J2250; J2370; J2704; J2795; J3010